=== PATIENT | male | born 1960 | race Caucasian/White ===

== ENCOUNTER 2019-12-21 | Inpatient (IN) | payer MEDICAID, OTHER ==
[~2019-12-21] VITALS: Ht 185.4 cm; Wt 88.6 kg
[~2019-12-21] MED LIST: LISI-662 PO; MULT-1238 PO
[2019-12-21 00:41] LABS: BASOPHILS % (AUTO) 0.8 % (0.0-2.0); EOSINOPHILS % (AUTO) 1.4 % (1.0-6.0); HEMATOCRIT 36.5 % (41-53); HEMOGLOBIN 12.2 g/dL (13.5-17.5); LYMPHOCYTES # (AUTO) 2.2 K/uL (1.0-4.8); LYMPHOCYTES % (AUTO) 37.3 % (22.0-44.0); MEAN CORPUSCULAR HEMOGLOBIN 28.4 pg (26.0-34.0); MEAN CORPUSCULAR HGB CONC 33.3 G/dL (31.0-37.0); MEAN CORPUSCULAR VOLUME 86 fL (80-100); MONOCYTES # (AUTO) 0.4 K/uL (0.1-1.0); MONOCYTES % (AUTO) 7.1 % (2.0-9.0); NEUTROPHILS # (AUTO) 3.2 K/uL (1.8-7.7); NEUTROPHILS % (AUTO) 53.4 % (40.0-70.0); PLATELET COUNT (AUTO) 266 K/uL (150-450); RED BLOOD CELL COUNT(AUTO) 4.27 MIL/uL (4.50-5.90); RED CELL DISTRIBUTION WIDTH 17.5 % (11.5-14.5)
[2019-12-21 00:55] LABS: ANION GAP 13 mmol/L (8-16); CARBON DIOXIDE 20 mmol/L (22-29); CHLORIDE 95 mmol/L (98-107); POTASSIUM 4.2 mmol/L (3.5-5.1); SODIUM SERUM 128 mmol/L (136-145)
[2019-12-21 01:03] LABS: AMPHET/METH SCREEN,URINE NEGATIVE (NEGATIVE); BARBITURATE SCREEN, URINE NEGATIVE (NEGATIVE); BENZODIAZEPINES SCREEN,URINE NEGATIVE (NEGATIVE); CANNABINOID SCREEN,URINE NEGATIVE (NEGATIVE); COCAINE SCREEN,URINE NEGATIVE (NEGATIVE); METHADONE SCREEN, URINE NEGATIVE (NEGATIVE); OPIATE SCREEN,URINE NEGATIVE (NEGATIVE)
[2019-12-21 01:09] LABS: ALANINE AMINOTRANSFERASE 11 U/L (12-78); ALBUMIN 3.3 g/dL (3.4-5.0); ALKALINE PHOSPHATASE 76 U/L (46-116); ASPARTATE AMINOTRANSFERASE 13 U/L (15-37); BILIRUBIN,TOTAL 0.2 mg/dL (0.1-1.0); CALCIUM, TOTAL 8.1 mg/dL (8.8-10.5); CREATININE 1.09 mg/dL (0.60-1.30); GLOMERULAR FILTR. RATE CALC > 60 mL/min (>60); GLUCOSE,RANDOM 115 mg/dL (70-110); UREA NITROGEN, BLOOD 15 mg/dL (7-18)
[2019-12-21 01:13] LABS: PHENCYCLIDINE SCREEN,URINE NEGATIVE (NEGATIVE)
[2019-12-21 02:30] LABS: SALICYLATE 3.9 mg/dL (2.8-20.0)
[2019-12-21 02:32] LABS: ACETAMINOPHEN < 2 mcg/mL (10-30)
[2019-12-21] MEDS ORDERED: LORazepam 2 MG TABLET PO PRN ×2 (05:45→14:30)
[2019-12-21] MEDS ORDERED: ZOLPIDEM TARTRATE 10 MG TABLET PO PRN (05:45)
[2019-12-21] MEDS ORDERED: ONDANSETRON HCL 4 MG TABLET PO PRN (08:30)
[2019-12-21] MEDS ORDERED: MAGNESIUM HYDROXIDE SUSPENSION 30 ML UDCUP PO PRN (08:30)
[2019-12-21] MEDS ORDERED: MAG HYDROX/AL HYDROX/SIMETH ES 30 ML SUSPENSION UDCUP PO PRN (08:30)
[2019-12-21] MEDS ORDERED: IBUPROFEN 400 MG TABLET PO PRN (08:30)
[2019-12-21] MEDS ORDERED: GuaiFENesin/D-METHORPHAN [SUGAR-FREE] 200-20MG/10 ML SYRUP UDCUP PO PRN ×2 (08:30→14:30)
[2019-12-21] MEDS ORDERED: PETROLATUM,WHITE 28 GM JELLY TP PRN (08:30)
[2019-12-21] MEDS ORDERED: ACETAMINOPHEN 325 MG TABLET PO PRN (08:30)
[2019-12-21] MEDS ORDERED: NICOTINE 14 MG/24 HOUR PATCH TD PRN (08:30)
[2019-12-21] MEDS ORDERED: DOCUSATE SODIUM 100 MG CAPSULE PO PRN (08:30)
[2019-12-21] MEDS ORDERED: CloNIDine HCL 0.1 MG TABLET PO PRN (08:30)
[2019-12-21] MEDS ORDERED: LOPERAMIDE HCL 2 MG CAPSULE PO PRN ×2 (08:30→14:30)
[2019-12-21] MEDS ORDERED: ALBUTEROL SULFATE HFA 90 MCG/PUFF 8 GM INHALER IH PRN (08:30)
[2019-12-21 09:46] VITALS: BP 161/100
[2019-12-21 10:03] VITALS: BP 161/100
[2019-12-21] MEDS ORDERED: PNEUMOCOCCAL VACCINE POLYVALENT 0.5 ML VIAL [PPSV23] IM ONE (11:30)
[2019-12-21] MEDS ORDERED: INFLUENZA VIRUS VACCINE QVS 2019-20 (3YR+)/PF 60 MCG/0.5 ML SYRINGE IM ONE (11:30)
[2019-12-21 12:30] VITALS: BP 141/102
[2019-12-21] MEDS: SODIUM CHLORIDE 1 GM TABLET PO SCH ×2 (13:25→16:13)
[2019-12-21] MEDS ORDERED: CYANOCOBALAMIN 1,000 MCG/ML VIAL IM ONE (14:30)
[2019-12-21 14:50] VITALS: BP 161/100
[2019-12-21] MEDS: MULTIVITAMINS WITH MINERALS, THERAPEUTIC TABLET PO SCH (14:54)
[2019-12-21] MEDS: FOLIC ACID 1 MG TABLET PO SCH (14:54)
[2019-12-21] MEDS: HALOPERIDOL 5 MG TABLET PO PRN (15:01)
[2019-12-21 16:02] VITALS: BP 147/90
[2019-12-21 16:03] VITALS: BP 147/90
[2019-12-21] MEDS: THIAMINE 100 MG TABLET PO SCH (16:13)
[2019-12-22 06:00] VITALS: BP 160/90
[2019-12-22] MEDS ORDERED: LORazepam 2 MG TABLET PO PRN (07:00)
[2019-12-22 07:24] LABS: CHOL/HDL RATIO 1.7 (4.2-7.3)
[2019-12-22] MEDS: FOLIC ACID 1 MG TABLET PO SCH (09:36)
[2019-12-22] MEDS: ESCITALOPRAM OXALATE 10 MG TABLET PO SCH (09:37)
[2019-12-22] MEDS: LORazepam 2 MG TABLET PO SCH ×4 (09:37→20:18)
[2019-12-22] MEDS: THIAMINE 100 MG TABLET PO SCH ×2 (09:37→16:38)
[2019-12-22] MEDS: SODIUM CHLORIDE 1 GM TABLET PO SCH ×3 (09:37→16:38)
[2019-12-22] MEDS: MULTIVITAMINS WITH MINERALS, THERAPEUTIC TABLET PO SCH (09:37)
[2019-12-22 10:00] VITALS: BP 165/104
[2019-12-22 11:25] VITALS: BP 165/104
[2019-12-22 14:44] VITALS: BP 164/95
[2019-12-22 16:51] VITALS: BP 157/87
[2019-12-23 08:00] VITALS: BP 165/111
[2019-12-23] MEDS: SODIUM CHLORIDE 1 GM TABLET PO SCH ×3 (08:50→16:27)
[2019-12-23] MEDS: MULTIVITAMINS WITH MINERALS, THERAPEUTIC TABLET PO SCH (08:52)
[2019-12-23] MEDS: FOLIC ACID 1 MG TABLET PO SCH (08:52)
[2019-12-23] MEDS: ESCITALOPRAM OXALATE 10 MG TABLET PO SCH (08:52)
[2019-12-23] MEDS: THIAMINE 100 MG TABLET PO SCH ×2 (08:52→16:27)
[2019-12-23] MEDS: LORazepam 2 MG TABLET PO SCH ×4 (08:52→20:33)
[2019-12-23] MEDS: HydrOXYzine PAMOATE 50 MG CAPSULE PO PRN (08:53)
[2019-12-23 16:29] VITALS: BP 108/72
[2019-12-23 19:55] VITALS: BP 140/90
[2019-12-24 06:31] VITALS: BP 143/81
[2019-12-24 06:32] VITALS: BP 143/81
[2019-12-24] MEDS ORDERED: LORazepam 1 MG TABLET PO PRN (07:00)
[2019-12-24] MEDS: SODIUM CHLORIDE 1 GM TABLET PO SCH ×3 (08:15→16:48)
[2019-12-24] MEDS: LORazepam 1 MG TABLET PO SCH ×4 (08:17→20:49)
[2019-12-24] MEDS: FOLIC ACID 1 MG TABLET PO SCH (08:17)
[2019-12-24] MEDS: MULTIVITAMINS WITH MINERALS, THERAPEUTIC TABLET PO SCH (08:18)
[2019-12-24] MEDS: THIAMINE 100 MG TABLET PO SCH ×2 (08:18→16:48)
[2019-12-24] MEDS: ESCITALOPRAM OXALATE 10 MG TABLET PO SCH (08:18)
[2019-12-24 08:55] VITALS: BP 150/95
[2019-12-24 08:56] VITALS: BP 150/95
[2019-12-24 17:21] VITALS: BP 156/89
[2019-12-24 18:09] VITALS: BP 156/89
[2019-12-25 06:49] VITALS: BP 156/94
[2019-12-25] MEDS ORDERED: LORazepam 1 MG TABLET PO PRN (07:00)
[2019-12-25 07:32] LABS: ANION GAP 8 mmol/L (8-16); CALCIUM, TOTAL 8.9 mg/dL (8.8-10.5); CARBON DIOXIDE 27 mmol/L (22-29); CHLORIDE 103 mmol/L (98-107); CREATININE 0.98 mg/dL (0.60-1.30); GLOMERULAR FILTR. RATE CALC > 60 mL/min (>60); GLUCOSE,RANDOM 115 mg/dL (70-110); POTASSIUM 4.2 mmol/L (3.5-5.1); SODIUM SERUM 138 mmol/L (136-145); UREA NITROGEN, BLOOD 21 mg/dL (7-18)
[2019-12-25] MEDS: FOLIC ACID 1 MG TABLET PO SCH (08:30)
[2019-12-25] MEDS: SODIUM CHLORIDE 1 GM TABLET PO SCH ×3 (08:31→16:57)
[2019-12-25] MEDS: THIAMINE 100 MG TABLET PO SCH ×2 (08:31→16:57)
[2019-12-25] MEDS: ESCITALOPRAM OXALATE 10 MG TABLET PO SCH (08:31)
[2019-12-25] MEDS: MULTIVITAMINS WITH MINERALS, THERAPEUTIC TABLET PO SCH (08:31)
[2019-12-25 10:13] VITALS: BP 162/84
[2019-12-25 18:40] VITALS: BP 146/97
[2019-12-26] MEDS: FOLIC ACID 1 MG TABLET PO SCH (08:14)
[2019-12-26] MEDS: ESCITALOPRAM OXALATE 10 MG TABLET PO SCH (08:14)
[2019-12-26] MEDS: MULTIVITAMINS WITH MINERALS, THERAPEUTIC TABLET PO SCH (08:14)
[2019-12-26] MEDS: SODIUM CHLORIDE 1 GM TABLET PO SCH ×3 (08:14→16:17)
[2019-12-26] MEDS: THIAMINE 100 MG TABLET PO SCH ×2 (08:14→16:17)
[2019-12-26] MEDS: HydrOXYzine PAMOATE 50 MG CAPSULE PO PRN (08:14)
[2019-12-26] MEDS: HALOPERIDOL 5 MG TABLET PO PRN (08:14)
[2019-12-26 08:30] VITALS: BP 175/110
[2019-12-26 09:54] VITALS: BP 107/75
[2019-12-26 18:41] VITALS: BP 143/83
[2019-12-27] MEDS: FOLIC ACID 1 MG TABLET PO SCH (08:29)
[2019-12-27] MEDS: SODIUM CHLORIDE 1 GM TABLET PO SCH ×3 (08:30→17:13)
[2019-12-27] MEDS: MULTIVITAMINS WITH MINERALS, THERAPEUTIC TABLET PO SCH (08:30)
[2019-12-27] MEDS: THIAMINE 100 MG TABLET PO SCH ×2 (08:30→17:13)
[2019-12-27] MEDS: ESCITALOPRAM OXALATE 10 MG TABLET PO SCH (08:30)
[2019-12-27 08:57] VITALS: BP 157/99
[2019-12-27] MEDS: LISINOPRIL 10 MG TABLET PO SCH (17:13)
[2019-12-27 21:46] VITALS: BP 160/103
[2019-12-28] MEDS: THIAMINE 100 MG TABLET PO SCH ×2 (08:49→17:56)
[2019-12-28] MEDS: MULTIVITAMINS WITH MINERALS, THERAPEUTIC TABLET PO SCH (08:49)
[2019-12-28] MEDS: LISINOPRIL 10 MG TABLET PO SCH (08:49)
[2019-12-28] MEDS: FOLIC ACID 1 MG TABLET PO SCH (08:49)
[2019-12-28] MEDS: SODIUM CHLORIDE 1 GM TABLET PO SCH ×3 (08:49→18:42)
[2019-12-28] MEDS: ESCITALOPRAM OXALATE 10 MG TABLET PO SCH (08:49)
[2019-12-28 09:08] VITALS: BP 135/95
[2019-12-28 16:12] VITALS: BP 133/85
[2019-12-29] MEDS: SODIUM CHLORIDE 1 GM TABLET PO SCH ×2 (07:41→11:58)
[2019-12-29] MEDS: FOLIC ACID 1 MG TABLET PO SCH (07:42)
[2019-12-29] MEDS: THIAMINE 100 MG TABLET PO SCH (07:42)
[2019-12-29] MEDS: ESCITALOPRAM OXALATE 10 MG TABLET PO SCH (07:42)
[2019-12-29] MEDS: MULTIVITAMINS WITH MINERALS, THERAPEUTIC TABLET PO SCH (07:43)
[2019-12-29] MEDS: LISINOPRIL 10 MG TABLET PO SCH (07:43)
[2019-12-29] MEDS: HALOPERIDOL 5 MG TABLET PO PRN (07:43)
[2019-12-29] MEDS ORDERED: ESCI10TA61 PO (08:40)
[2019-12-29] MEDS ORDERED: LISI-661 PO (12:43)
[2019-12-29] MEDS ORDERED: NACL1 PO (13:22)
[2019-12-29 13:44] VITALS: BP 159/92
== END 2019-12-29 14:52 | disposition home or self-care (01) | DRG 885 ==
LOC: EMS 00:02 → 3EC 09:15
PROC: 3E0234Z Introduction of Serum, Toxoid and Vaccine into Muscle, Percutaneous Approach (ICD-10-PCS; principal; 2019-12-21)
DX: F33.2 Major depressive disorder, recurrent severe without psychotic features (principal); F10.229 Alcohol dependence with intoxication, unspecified; E87.1 Hypo-osmolality and hyponatremia; I10 Essential (primary) hypertension; E11.9 Type 2 diabetes mellitus without complications; Z91.5 Personal history of self-harm; M25.569 Pain in unspecified knee; D64.9 Anemia, unspecified; M25.561 Pain in right knee; Y90.8 Blood alcohol level of 240 mg/100 ml or more; Z59.0 Homelessness; T45.8X2A Poisoning by other primarily systemic and hematological agents, intentional self-harm, initial encounter; Y92.89 Other specified places as the place of occurrence of the external cause; Z79.899 Other long term (current) drug therapy; Z23 Encounter for immunization; Z28.21 Immunization not carried out because of patient refusal
CPT/HCPCS: 90732; G0480; G0481; J3420